=== PATIENT | male | born 1975 | race Asian ===

== ENCOUNTER 2017-01-21 19:11 | Observation (INO) | payer MEDICAID ==
[2017-01-21] MEDS ORDERED: ONDANSETRON HCL INJ/PF 4 MG/2 ML SDV IV ONE (20:07)
[2017-01-21] MEDS ORDERED: NORMAL SALINE 1000 ML 1,000 ML IV ONE (20:07)
[2017-01-21 20:50] LABS: ABSOLUTE LYMPHOCYTES (AUTO) 4.3 10^3/uL (0.5-4.7); ABSOLUTE MONOCYTES (AUTO) 1.2 10^3/uL (0.1-1.4); ABSOLUTE NEUT (AUTO) 14.4 10^3/uL (1.7-8.2); BASOPHILS % (AUTO) 0.2 % (0-2); HEMATOCRIT 43.5 % (37.9-51.0); HEMOGLOBIN 13.6 g/dL (13.5-17.0); HGB HCT DIFFERENCE -2.7; LYMPHOCYTES % (AUTO) 21.8 % (13-45); MEAN CORPUSCULAR HGB CONC 31.3 g/dL (32.0-36.0); MEAN CORPUSCULAR VOLUME 70 fl (80-97); MONOCYTES % (AUTO) 5.9 % (3-13); RED CELL DISTRIBUTION WIDTH 23.4 % (11.5-14.0); SEGMENTED NEUTROPHILS % (AUTO) 72.1 % (42-78); WHITE BLOOD COUNT 19.9 10^3/uL (4.0-10.5)
[2017-01-21 20:57] LABS: ALANINE AMINOTRANSFERASE 139 U/L (21-72); ALBUMIN 4.4 g/dL (3.5-5.0); ALKALINE PHOSPHATASE 120 U/L (38-126); ASPARTATE AMINO TRANSFERASE 134 U/L (17-59); BILIRUBIN,DIRECT 0.7 mg/dL (0.0-0.4); BILIRUBIN,TOTAL 1.1 mg/dL (0.2-1.3); BLOOD UREA NITROGEN 27 mg/dL (7-20); CALCIUM 10.4 mg/dL (8.4-10.2); CREATININE RESULT 0.91 mg/dL (0.52-1.25); LIPASE 55.7 U/L (23-300); TOTAL PROTEIN 8.5 g/dL (6.3-8.2)
--- NOTE | 2017-01-21 21:01 | ER Document Report ---
ED General - General Chief Complaint: Vomiting Stated Complaint: POSSIBLE FOOD POISIONING Time Seen by Provider: 01/21/17 20:27 Notes: Patient is a 41-year-old male with past medical history of hepatitis C and type 1 diabetes induced apparently through attempted treatment to cure his hepatitis C who presents with persistent vomiting and epigastric abdominal pain for the last 24 hours. Describes as a dull, burning, constant pain to the epigastrium which started after he had vomited several times. He believes this is related to drinking "bad" orange juice. No known sick contacts. States his blood sugars typically run in the 400s and "it is not manageable and it just will not get better". Admits to multiple prior hospitalizations for diabetic ketoacidosis. He states he continues to take his insulin despite vomiting. Nothing has improved or worsened his symptoms. He has not seen his primary care doctor regarding today's concerns. TRAVEL OUTSIDE OF THE [place] IN LAST 30 DAYS: No - Related Data Allergies/Adverse Reactions: naproxen [Naproxen] Allergy (Verified 11/04/16 17:30) Past Medical History - General Information source: Patient - Social History Smoking Status: Current Every Day Smoker Frequency of alcohol use: None Drug Abuse: None Lives with: Spouse/Significant other Family History: Reviewed & Not Pertinent Patient has suicidal ideation: No Patient has homicidal ideation: No Endocrine Medical History: Reports: Hx Diabetes Mellitus Type 1 Renal/ Medical History: Denies: Hx Peritoneal Dialysis GI Medical History: Reports: Hx Hepatitis - Hepatitis C Infectious Medical History: Reports: Hx Hepatitis - Hepatitis C Past Surgical History: Reports: Hx Cholecystectomy, Hx Tonsillectomy - Immunizations Immunizations up to date: Yes Hx Diphtheria, Pertussis, Tetanus Vaccination: Yes Review of Systems - Review of Systems Notes: Constitutional: Negative for fever. HENT: Negative for sore throat. Eyes: Negative for visual changes. Cardiovascular: Negative for chest pain. Respiratory: Negative for shortness of breath. Gastrointestinal: Positive for epigastric abdominal pain and vomiting Genitourinary: Negative for dysuria. Musculoskeletal: Negative for back pain. Skin: Negative for rash. Neurological: Negative for headaches, weakness or numbness. 10 point ROS negative except as marked above and in HPI. Physical Exam - Vital signs Vitals: Temp Pulse Resp BP Pulse Ox 98.2 F 131 H 16 115/63 100 01/21/17 19:38 01/21/17 19:38 01/21/17 19:38 01/21/17 19:38 01/21/17 19:38 Interpretation: Tachycardic Notes: PHYSICAL EXAMINATION: GENERAL: Appears mildly ill but in no acute distress HEAD: Atraumatic, normocephalic. EYES: Pupils equal round and reactive to light, extraocular movements intact, sclera anicteric, conjunctiva are normal. ENT: nares patent, oropharynx clear without exudates. Moderately dry mucous membranes. NECK: Normal range of motion, supple without lymphadenopathy LUNGS: Breath sounds clear to auscultation bilaterally and equal. No wheezes rales or rhonchi. HEART: Regular tachycardia without murmurs ABDOMEN: Soft, nontender, normoactive bowel sounds. No guarding, no rebound. No masses appreciated. EXTREMITIES: Normal range of motion, no pitting or edema. No cyanosis. NEUROLOGICAL: No focal neurological deficits. Moves all extremities spontaneously and on command. PSYCH: Normal mood, normal affect. SKIN: Warm, Dry, normal turgor, no rashes or lesions noted. Course - Re-evaluation Re-evalutation: 01/21/17 20:59 Patient presents with persistent vomiting for the past 24 hours. Patient reports he is hyperglycemic at baseline typically in the 400s. Patient is tachycardic at time of arrival. Will proceed with labs, IV fluids, and reassessment. Patient already status post cholecystectomy and has no focal abdominal tenderness to suggest an acute bowel obstruction, mesenteric ischemia , acute pancreatitis, or bowel perforation. EKG without evidence of ischemic changes and I do not suspect an atypical presentation of ACS time 01/21/17 21:38 Patient's laboratories are consistent with acute diabetic ketoacidosis. And gap is 29 and bicarb is decreased at 18. His glucose is 429. He remains tachycardic. An additional 2 L of fluid will be bolused, potassium and IV insulin infusion will be started. Patient is critically ill at this time and will require admission. He will be reassessed frequently. 01/21/17 22:32 Patient is mildly tachycardic but repeat venous gas shows that his acidosis has now likely resolved. Insulin infusion is ongoing. He remains awake and talkative. I have discussed this case with who will admit. - Vital Signs Vital signs: Temp Pulse Resp BP Pulse Ox 99.8 F 98 14 100/53 L 100 01/22/17 01:27 01/22/17 01:27 01/22/17 01:27 01/22/17 01:27 01/22/17 01:27 - Laboratory Result Diagrams: 01/21/17 20:20 01/22/17 00:20 Laboratory results interpreted by me: 01/21/17 01/21/17 01/22/17 20:20 20:20 00:20 WBC 19.9 H RBC 6.20 H MCV 70 L MCH 22.0 L MCHC 31.3 L RDW 23.4 H Absolute Neutrophils 14.4 H Chloride 92 L Carbon Dioxide 18 L Anion Gap 29 H BUN 27 H 24 H Glucose 429 H* 243 H POC Glucose Calcium 10.4 H Direct Bilirubin 0.7 H AST 134 H ALT 139 H Total Protein 8.5 H 01/22/17 01/22/17 00:35 01:40 WBC RBC MCV MCH MCHC RDW Absolute Neutrophils Chloride Carbon Dioxide Anion Gap BUN Glucose POC Glucose 207 H 154 H Calcium Direct Bilirubin AST ALT Total Protein - EKG Interpretation by Me Additional EKG results interpreted by me: 01/21/17 21:41 Sinus tachycardia. Rate 115. No ST elevations or depressions. QTC is 460. Critical Care Note - Critical Care Note Total time excluding time spent on procedures (mins): 45 Comments: Critical care time spent obtaining history from patient or surrogate, discussions with consultants, development of treatment plan with patient or surrogate, evaluation of patient's response to treatment, examination of patient , ordering and performing treatments and interventions, ordering and review of laboratory studies, re-evaluation of patient's condition, ordering and review of radiographic studies and review of old charts Discharge - Discharge Clinical Impression: Hypovolemia Diabetic ketoacidosis Qualifiers: Diabetes mellitus type: type 1 Diabetes mellitus complication detail: without coma Qualified Code(s): E10.10 - Type 1 diabetes mellitus with ketoacidosis without coma Nausea and vomiting Qualifiers: Vomiting type: unspecified Vomiting Intractability: non-intractable Qualified Code(s): R11.2 - Nausea with vomiting, unspecified Condition: Critical Disposition: ADMITTED INPATIENT Admitting Provider: [facility] Unit Admitted: [facility]
[2017-01-21 21:22] LABS: CARBON DIOXIDE 18 mmol/L (22-30); CHLORIDE 92 mmol/L (98-107); POTASSIUM 4.1 mmol/L (3.6-5.0)
[2017-01-21 21:23] LABS: ANION GAP 29 (5-19); GLUCOSE 429 mg/dL (75-110)
[2017-01-21] MEDS ORDERED: INSULIN REG, HUMAN 100 UNIT/ML 3 ML VIAL (PYX) IV ONE (21:36)
[2017-01-21] MEDS ORDERED: RINGERS SOLUTION,LACTATED 2,000 ML IV ONE (21:37)
[2017-01-21] MEDS ORDERED: POTASSI CL 20 MEQ/50 ML RIDER 50 ML IV ONE (21:38)
--- NOTE | 2017-01-21 22:09 | RADIOLOGY REPORT (SQ) ---
EXAM DESCRIPTION: CHEST SINGLE VIEW COMPLETED DATE/TIME: 01/21/2017 9:53 pm REASON FOR STUDY: chest pain COMPARISON: October 2016 EXAM PARAMETERS: NUMBER OF VIEWS: One view. TECHNIQUE: Single frontal radiographic view of the chest acquired. RADIATION DOSE: NA LIMITATIONS: None. FINDINGS: LUNGS AND PLEURA: Ill-defined increased density is identified in the right mid lung field which correlates with an oval nodular density in the inferior right upper lobe identified on the prev ious chest CT scan. No acute consolidations or pleural effusions are identified. No pneumothorax is seen MEDIASTINUM AND HILAR STRUCTURES: No masses. Contour normal. HEART AND VASCULAR STRUCTURES: Heart normal in size. Normal vasculature. BONES: No acute findings. HARDWARE: None in the chest. OTHER: No other significant finding. IMPRESSION: Ill-defined increased density in the right mid lung field as noted above. No acute cons olidations or pleural effusions are identified. Other findings as noted above TECHNICAL DOCUMENTATION: JOB ID: [id number]
[2017-01-21 22:20] LABS: VENOUS BLOOD BASE EXCESS 1.2 mmol/L; VENOUS BLOOD HCO3 26.2 mmol/L (20-32); VENOUS BLOOD PH 7.4 (7.30-7.42)
[2017-01-21] MEDS ORDERED: DEXTROSE 40% GEL 15 GM TUBE PO PRN ×2 (22:43)
[2017-01-21] MEDS ORDERED: DEXTROSE 50%-WATER 25 GM/50 ML DISP.SYRIN IV PRN ×2 (22:43)
[2017-01-21] MEDS ORDERED: NORMAL SALINE 100 ML with INSULIN REGULAR, HUMAN 100 UNIT IV PRN ×2 (22:43)
[2017-01-21] MEDS ORDERED: 1/2 NORMAL SALINE 1,000 ML IV PRN (22:43)
[2017-01-21] MEDS ORDERED: GLUCAGON,HUMAN RECOMB 1 MG INJ IM PRN (22:43)
[2017-01-21] MEDS ORDERED: 1/2 NORMAL SALINE 1,000 ML IV ONE (22:45)
[2017-01-22 00:38] LABS: ANION GAP 14 (5-19); BLOOD UREA NITROGEN 24 mg/dL (7-20); CALCIUM 9.4 mg/dL (8.4-10.2); CARBON DIOXIDE 25 mmol/L (22-30); CHLORIDE 101 mmol/L (98-107); CREATININE RESULT 0.78 mg/dL (0.52-1.25); GLUCOSE 243 mg/dL (75-110); POTASSIUM 4.3 mmol/L (3.6-5.0); SODIUM 140.2 mmol/L (137-145)
[2017-01-22] MEDS: DEXTROSE 5%-NORMAL SALINE 1,000 ML IV PRN ×2 (01:37→05:12)
[2017-01-22] MEDS ORDERED: NICOTINE 21 MG/24 HR PATCH.TD24 TD PRN (02:16)
[2017-01-22] MEDS ORDERED: ACETAMINOPHEN 325 MG TABLET PO PRN (02:16)
[2017-01-22] MEDS ORDERED: OXYCODONE HCL IR 5 MG TABLET PO PRN (02:16)
[2017-01-22] MEDS ORDERED: MAGNESIUM HYDROXIDE SUSP 30 ML UDCUP PO PRN (02:18)
[2017-01-22 02:50] LABS: ADD ON TESTING BLD IN LAB ACKNOWLEDGE
[2017-01-22 02:59] LABS: MAGNESIUM 1.8 mg/dL (1.6-2.3)
--- NOTE | 2017-01-22 03:09 | PDOC H&P ---
History of Present Illness Admission Date/PCP: 01/21/17 23:49 JUDY KANG DO Patient complains of: nausea, vomiting History of Present Illness: JUDY BATRES is a 41 year old male with underlying type 1 diabetes mellitus, and chronic painful diabetic neuropathy involving his hands and feet, mild anxiety and depression, without suicidal or homicidal ideation, and underlying hepatitis C, status post treatment of same who presents to the emergency room for evaluation of above complaint. Patient has been discussed with emergency room physician who evaluated the patient. He describes a 24 hour history or so of multiple episodes of nonbloody non- coffee ground nausea and vomiting, starting after he drank orange juice, which, by his account, did not taste completely normal. No other friends or family drank the same juice. Denies diarrhea, fever or chills. No "sore spots" anywhere on his body. Occasional mild chest discomfort associated with his vomiting. Currently no chest pain. States his blood sugar, which he states she checks 6 times a day, is routinely in the 400 range. Lantus was increased from 25 units nightly to 30 units nightly approximately a week or so ago. Also uses sliding scale NovoLog. His only previous admission for diabetic ketoacidosis was in 2008. Currently resting quietly, hungry. States he feels a bit better. Laboratory results are listed in [facility] and are reviewed. X-ray summary results are listed below, with full report(s) reviewed, including prior CT angiogram of chest in October of this year. Follow-up of these results with his primary care provider discussed at that time with patient by emergency room physician. . EKG reviewed and compared to prior tracing from November 04 of this year. Social history/personal habits: . Has children. 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 One pack of cigarettes per day. No alcohol or illicit drug use. Allergies/adverse reactions are listed in [facility] and are reviewed. Home medications initially autopopulated into [employer] may not accurately reflect patient's true medications, dosages, and/or frequencies. plant maintenance technician to reconcile medications. Unfortunately, patient not certain of all medications/dosages/frequencies. REVIEW OF SYSTEMS: Constitutional: No fever or chills. Eyes: No vision complaints. ENT: No swallowing problems or complaints. Denies hearing loss. Pulmonary: No current complaints. Cardiovascular: See history and present illness. Gastrointestinal: See history and present illness. Skin: No current complaints, including rashes. Hematologic: Denies easy bruising. Neurologic: See history and present illness. Musculoskeletal: No current or chronic joint complaints, such as arthritis. Psychiatric: See history and present illness. Endocrine: Denies specific complaints, including polyuria. Genitourinary: No current complaints, including dysuria. PHYSICAL EXAMINATION: 5 feet 8 inches tall. 74.1 kg. BMI 24.8 kg/m.Pulse 104 and regular. Blood pressure 100/53. Respirations are 14 and unlabored. 100% saturation on room air. Temperature 99.8. Well-nourished well-developed though somewhat chronically ill-appearing male appearing perhaps a bit older than his stated age. Appears to feel a bit under the weather, so to speak. Mildly anxious without agitation. Cooperative. is present at his side; patient approves. Skin is warm and dry. No grossly obvious evidence of rash in areas of skin examined. No subcutaneous nodules palpated. ENT: Hearing grossly normal to normal conversation. Tongue midline on protrusion pink and slightly tacky. Eyes: No scleral icterus. Pupils equal and reactive to light at 4 mm. [place] conjunctivae. Neck is supple and nontender to gentle active range of motion and palpation. Midline trachea. No palpable thyroid nodule mass enlargement or tenderness. Lymphatic: No palpable cervical or clavicular nodes. Neck and lymphatic exams limited by patient body habitus. Psychiatric: Reasonable insight into acute and chronic medical issues. Oriented to time location and why here. Lungs: Auscultation reveals clear and equal breath sounds bilaterally. No use of accessory respiratory muscles. Cardiovascular: Heart regular rate and rhythm, without gallop murmur or rub. No carotid or abdominal aortic bruits. No ankle or pedal edema. Palpable dorsalis pedis pulses. Abdomen:soft slightly distended nontender with positive bowel sounds. Unable to adequately evaluate abdomen for masses or organomegaly due to distention. Extremities: Feet are warm and dry. Very mild bilateral calf tenderness to compression, without palpable venous cords; chronic finding, according to the patient, without recent change. No grossly obvious visual evidence of calf swelling. Gentle manipulation of lower extremities fails to reveal any obvious evidence of injury or instability to knees hips or ankles. Neurologic: Moves upper extremities grossly normally. Patellar reflexes absent. Absent Babinski. Dorsiflexion and plantarflexion of feet 5 / 5 and symmetric. Past Medical History Cardiac Medical History: Denies: Congestive Heart Failure, DVT, Myocardial Infarction, Hyperlipidema, Hypertension, Pulmonary Embolism Pulmonary Medical History: Denies: Asthma, Chronic Obstructive Pulmonary Disease (COPD), Sleep Apnea EENT Medical History: Denies: Eyes, Ears, Throat Neurological Medical History: Reports: Other - Painful diabetic neuropathy involving hands and feet Denies: Hemorrhagic CVA, Ischemic CVA, Seizures Endocrine Medical History: Reports: Diabetes Mellitus Type 1 Denies: Diabetes Mellitus Type 2, Hyperthyroidism, Hypothyroidism Renal/ Medical History: Reports: None GI Medical History: Reports: Hepatitis - Hepatitis C, status post treatment of same Denies: Cirrhosis, Gastroesophageal Reflux Disease, Peptic Ulcer Disease Musculoskeltal Medical History: Denies: Arthritis Skin Medical History: Reports: None Psychiatric Medical History: Reports: Depression, General Anxiety Disorder, Tobacco Dependency Denies: Alcohol Dependency, Substance Abuse Hematology: Reports: None Infectious Medical History: Reports: Hepatitis C - Status post treatment of same Denies: Clostridium Difficile, Hepatitis B, Methicillin-Resistant Staph Aureus Past Surgical History Past Surgical History: Reports: Cholecystectomy, Tonsillectomy Social History Information Source: Patient, Emergency Med Personnel, [facility] Records Lives with: Family Smoking Status: Current Every Day Smoker Cigarettes Packs Per Day: 1 Number of Years Smokin Last Time Smoked: 01-21-17 Frequency of Alcohol Use: None Hx Recreational Drug Use: No Drugs: None Hx Prescription Drug Abuse: No - Advance Directive Resuscitation Status: Full Code Surrogate healthcare decision maker:: Family History Family History: Reviewed & Not Pertinent Parental Family History Reviewed: Yes - Uncertain cause of father's . Mother is alive and healthy. Children Family History Reviewed: Yes - Healthy Sibling(s) Family History Reviewed.: NA Medication/Allergy Home Medications: Gabapentin [Neurontin] 600 mg PO Q8 01/22/17 Insulin Aspart [Novolog Flexpen] 0 unit SUBCUT .SLD SCALE 01/22/17 Insulin Aspart [Novolog Flexpen] 40 unit SUBCUT AC 01/22/17 Insulin Glargine,Hum.rec.anlog [Lantus Solostar] 30 unit SQ QHS 01/22/17 Lurasidone HCl [Latuda] 40 mg PO BID 01/22/17 Mupirocin [Bactroban 2% Ointment 22 gm] 1 applic TP BID 01/22/17 Ondansetron [Zofran Odt 4 mg Tablet] 1 - 2 tab PO Q4HP PRN #10 tab.rapdis Oxycodone HCl [Oxycodone HCl 10 MG Tablet] 10 mg PO Q6HP PRN 01/22/17 Allergies/Adverse Reactions: naproxen [Naproxen] Allergy (Verified 11/04/16 17:30) Physical Exam Vital Signs: Temp Pulse Resp BP Pulse Ox 99.8 F 98 14 100/53 L 100 01/22/17 01:27 01/22/17 01:27 01/22/17 01:27 01/22/17 01:27 01/22/17 01:27 Results Laboratory Results: 01/22/17 00:20 01/22/17 00:20 Sodium 140.2 Potassium 4.3 Chloride 101 Carbon Dioxide 25 Anion Gap 14 BUN 24 H Creatinine 0.78 Est GFR ( Amer) > 60 Est GFR (Non-Af Amer) > 60 Glucose 243 H Calcium 9.4 Impressions: Chest X-Ray 01/21/17 21:39 IMPRESSION: Ill-defined increased density in the right mid lung field as noted above. No acute consolidations or pleural effusions are identified. Other findings as noted above Assessment & Plan - Diagnosis (1) Chest pain Qualifiers: Chest pain type: unspecified Qualified Code(s): R07.9 - Chest pain, unspecified Is this a current diagnosis for this admission?: YesPlan: Likely secondary to esophageal spasm from his nausea and vomiting, but will repeat troponin. (2) Nodule of right lung Is this a current diagnosis for this admission?: YesPlan: At 3:35 AM, 01/22/2017, with present, along with patient's floor nurse Radha, patient and confirmed that Dr. Kang is aware of his previous abnormal CT scan of the chest, revealing a nodule in his right lung, and is continuing to follow this area of interest for the patient. (3) Tobacco dependency Is this a current diagnosis for this admission?: YesPlan: As needed nicotine patch. (4) Leukocytosis Qualifiers: Leukocytosis type: unspecified Qualified Code(s): D72.829 - Elevated white blood cell count, unspecified Is this a current diagnosis for this admission?: YesPlan: Likely secondary to stress of the DKA, but will repeat CBC with differential. (5) Hep C w/o coma, chronic Is this a current diagnosis for this admission?: Yes (6) Diabetic neuropathy, painful Is this a current diagnosis for this admission?: YesPlan: As needed pain medication. (7) DKA, type 1 Qualifiers: Diabetes mellitus complication detail: without coma Qualified Code(s ): E10.10 - Type 1 diabetes mellitus with ketoacidosis without coma Is this a current diagnosis for this admission?: YesPlan: Patient will be admitted under DKA protocol. Insulin drip. Vigorous fluid hydration. Q 4 hours chemistry 7. Hourly Accu-Cheks. Addition of dextrose to intravenous fluid once serum glucose and/or Accu-Cheks 275 or less. Patient is full code. I have strongly encouraged patient not to get out of bed without notifying staff , to avoid a fall with injury. Knee high SCDs for DVT prophylaxis, along with subcutaneous heparin. Impression and plans were discussed with patient and , both of whom concur Time spent in evaluation and management of patient: 72 critical care minutes
[2017-01-22 05:07] LABS: PROTHROMBIN TIME 14.5 SEC (11.4-15.4)
[2017-01-22 05:08] LABS: PARTIAL THROMBOPLASTIN TIME 29.4 SEC (23.5-35.8)
[2017-01-22 05:24] LABS: ANION GAP 9 (5-19); BLOOD UREA NITROGEN 21 mg/dL (7-20); CALCIUM 8.7 mg/dL (8.4-10.2); CARBON DIOXIDE 29 mmol/L (22-30); CHLORIDE 105 mmol/L (98-107); CREATININE RESULT 0.68 mg/dL (0.52-1.25); GLUCOSE 113 mg/dL (75-110)
[2017-01-22 06:23] LABS: POTASSIUM 3.3 mmol/L (3.6-5.0)
[2017-01-22] MEDS ORDERED: INSULIN REG, HUMAN 100 UNIT/ML 3 ML VIAL (PYX) SUBCUT PRN (06:55)
[2017-01-22] MEDS ORDERED: POTASSIUM CHLORIDE 20 MEQ/15 ML UDCUP PO ONE ×2 (08:00→10:00)
[2017-01-22 08:10] LABS: ABSOLUTE BASOPHILS # (AUTO) 0.2 10^3/uL (0.0-0.2); ABSOLUTE LYMPHOCYTES (AUTO) 5.2 10^3/uL (0.5-4.7); ABSOLUTE MONOCYTES (AUTO) 1.4 10^3/uL (0.1-1.4); ABSOLUTE NEUT (AUTO) 9.1 10^3/uL (1.7-8.2); BASOPHILS % (AUTO) 1.1 % (0-2); EOSINOPHILS % (AUTO) 0.2 % (0-6); HEMATOCRIT 37.8 % (37.9-51.0); HEMOGLOBIN 11.8 g/dL (13.5-17.0); HGB HCT DIFFERENCE -2.4; LYMPHOCYTES % (AUTO) 32.8 % (13-45); MEAN CORPUSCULAR HEMOGLOBIN 22.3 pg (27.0-33.4); MEAN CORPUSCULAR HGB CONC 31.4 g/dL (32.0-36.0); MEAN CORPUSCULAR VOLUME 71 fl (80-97); MONOCYTES % (AUTO) 8.8 % (3-13); RED BLOOD COUNT 5.31 10^6/uL (4.35-5.55); RED CELL DISTRIBUTION WIDTH 23.2 % (11.5-14.0); SEGMENTED NEUTROPHILS % (AUTO) 57.1 % (42-78); WHITE BLOOD COUNT 15.9 10^3/uL (4.0-10.5)
[2017-01-22 08:26] LABS: ALANINE AMINOTRANSFERASE 119 U/L (21-72); ALBUMIN 3.3 g/dL (3.5-5.0); ALKALINE PHOSPHATASE 97 U/L (38-126); ANION GAP 17 (5-19); ASPARTATE AMINO TRANSFERASE 129 U/L (17-59); BILIRUBIN,DIRECT 0.6 mg/dL (0.0-0.4); BILIRUBIN,TOTAL 1.1 mg/dL (0.2-1.3); BLOOD UREA NITROGEN 19 mg/dL (7-20); CARBON DIOXIDE 21 mmol/L (22-30); CHLORIDE 104 mmol/L (98-107); CREATININE RESULT 0.65 mg/dL (0.52-1.25); GLUCOSE 229 mg/dL (75-110); SODIUM 142.3 mmol/L (137-145); TOTAL PROTEIN 6.9 g/dL (6.3-8.2)
[2017-01-22 08:27] LABS: POTASSIUM 4.4 mmol/L (3.6-5.0)
[2017-01-22] MEDS ORDERED: ONDANSETRON HCL INJ/PF 4 MG/2 ML SDV ONE ×2 (09:34→09:37)
--- NOTE | 2017-01-22 09:50 | EKG REPORT ---
SEVERITY:- ABNORMAL ECG - SINUS TACHYCARDIA PROBABLE LEFT ATRIAL ABNORMALITY PROBABLE LEFT VENTRICULAR HYPERTROPHY : Confirmed by: Jaya Valdivia 22-Jan-2017 09:49:33
[2017-01-22] MEDS ORDERED: DOCUSATE SODIUM 100 MG CAPSULE PO SCH (10:00)
[2017-01-22] MEDS ORDERED: HEPARIN SOD (PORCINE) 5,000 UNIT/ML 1 ML SYRINGE SUBCUT SCH (10:00)
[2017-01-22] MEDS ORDERED: NORMAL SALINE 1000 ML 1,000 ML IV PRN (10:04)
[2017-01-22 12:18] VITALS: BP 100/53
[2017-01-22 12:19] LABS: APPEARANCE,URINE TURBID; BILIRUBIN,URINE NEGATIVE (NEGATIVE); GLUCOSE, URINE 50 mg/dL (NEGATIVE); KETONES,URINE 20 mg/dL (NEGATIVE); LEUKOCYTE ESTERASE,URINE NEGATIVE (NEGATIVE); NITRITE,URINE NEGATIVE (NEGATIVE); PROTEIN,URINE NEGATIVE (NEGATIVE); URINE SPECIFIC GRAVITY 1.013; UROBILINOGEN,URINE NEGATIVE mg/dL (<2.0)
[2017-01-22] MEDS ORDERED: INSULIN GLARGINE,HUM.REC.ANLOG 1,000 UNIT/10 ML UNIT SUBCUT ONE (12:30)
[2017-01-22 12:34] LABS: URINE BARBITURATES SCREEN NEGATIVE; URINE METHADONE SCREEN NEGATIVE; URINE OPIATES LOW NEGATIVE; URINE PHENCYCLIDINE SCREEN NEGATIVE
[2017-01-22 13:23] LABS: ANION GAP 19 (5-19); BLOOD UREA NITROGEN 19 mg/dL (7-20); CALCIUM 8.9 mg/dL (8.4-10.2); CARBON DIOXIDE 19 mmol/L (22-30); CHLORIDE 102 mmol/L (98-107); CREATININE RESULT 0.68 mg/dL (0.52-1.25); SODIUM 139.7 mmol/L (137-145)
[2017-01-22 13:34] LABS: GLUCOSE 438 mg/dL (75-110)
[2017-01-22 13:35] LABS: POTASSIUM 5.4 mmol/L (3.6-5.0)
--- NOTE | 2017-01-22 18:04 | DISCHARGE SUMMARY E ---
Discharge Summary NAME: JUDY BATRES : 1975 AGE: 41Y ADMITTED: 01/22/2017 DISCHARGED: 01/22/2017 CODE STATUS: FULL CODE. PRIMARY CARE PROVIDER: Dr. Kang. DISCHARGE DIAGNOSES: 1. Diabetic ketoacidosis. 2. Diabetes mellitus type 1. 3. Chronic hyperglycemia secondary to noncompliance. 4. Anxiety and depression. 5. Peripheral neuropathy. 6. Hepatitis C. DISCHARGE MEDICATIONS: 1. Neurontin 600 mg p.o. q.8 hours. 2. Lantus 30 units subcutaneous hour of sleep. 3. Novolog 40 units prior to each meal. 4. Latuda 40 mg p.o. b.i.d. 5. Zofran ODT 4 mg 1-2 tablets p.o. q.4 hours p.r.n., #10 tablets 0 refills. 6. Oxycodone 10 mg p.o. q.6 hours p.r.n. DIET: Diabetic. ACTIVITY: As tolerated. HISTORY OF PRESENT ILLNESS: The patient is a 41-year-old male with a past medical history of diabetes mellitus type 1 as well as peripheral neuropathy. The patient presented to the Emergency Department with a chief complaint of nausea and vomiting. The patient describes a 24-hour history of multiple episodes of nonbloody, coffee-ground emesis and an associated nausea. The patient stated that the symptoms occurred after he drank dark-colored orange juice which he stated did not taste completely normal. Nonetheless, the patient continued to drink it. No one else in his family did. The patient denied any diarrhea, no fevers, chills, no sore spots anywhere on his body. The patient states that his blood sugar which he takes about 6 times a day routinely runs in the 400 range. His Lantus had been increased from 25 to 30 units nightly about a month ago. He also takes Novolog sliding scale coverage. The patient was extremely reluctant for admission but was agreeable and was referred to the hospital for admission and management. HOSPITAL COURSE: The patient was admitted to [facility]. The patient was started on insulin drip, and his blood sugar very quickly corrected. Subsequently diet was advanced, and potassium had remained stable. The patient tolerated the meal without issue. Earlier, he did require nausea medications. Upon my examination, the patient, in the presence of his , was absolutely adamant for discharge, stating that his blood sugar routinely runs above 400 and that this is nothing new for him. The patient states that he is at his baseline but would like something for nausea. The patient does not want to remain in the hospital. He has been afebrile. His blood pressures are in a good range. The patient is not tachycardic and is oxygenating well on room air. I have made the patient aware that with hyperglycemia can come hyperkalemia; however, the patient states that this is his normal state and would like discharge. The patient was made aware of the risk and was offered to continue to stay; however, the patient is adamant for discharge. DIAGNOSTICS: Lab values are as follows: Hematology obtained on 01/22/2017: WBC of 15.9; hemoglobin ; hematocrit 37.8; platelet count is 203,000. Coagulation obtained on 01/22/2017: PT is.5. INR is 1.06. VGB obtained on 01/21/2017: pH is 7.4; pCO2 is 43; bicarbonate is 26.2. Chemistry obtained on 01/22/2017: Sodium is 139; potassium is 5.4; chloride is 102; carbon dioxide 19; BUN 19; creatinine 0.68; glucose 432; calcium is 8.9. Magnesium is 1.8. Bilirubin is 1.1; AST 129; ALT is 119; alkaline phosphatase 97. Troponin is 0.012. Total protein 6.9, albumin 3.3. Lipase is 55. Urine obtained on 01/22/2017: pH of 6.0, specific gravity is 1.013, protein negative, glucose 50, ketones 20, occult blood negative, nitrite negative, bilirubin negative, urobilinogen negative, leukocyte esterase negative, WBC 2, RBC 0, bacteria trace, mucus rare; ascorbic acid is negative. Toxicology obtained on 01/22/2017 is kenny negative. Chest x-ray obtained on 01/21/2017 reveals no acute consolidations or pleural effusions. PHYSICAL EXAMINATION: GENERAL: On examination, the patient is a well-developed, reasonably nourished 41-year-old male who is awake, alert, and oriented to person, place, time, and situation. He is verbal conversationally, ambulatory and does not appear to be in acute distress. VITAL SIGNS: As follows, temperature is 98.2. Pulse is 96. Respirations 19. Blood pressure is 105/53. Oxygen saturation 100% on room air. SKIN: Warm and dry. No rash. Not diaphoretic. HEENT: Pupils are equal, round, and reactive to light and accommodation. Conjunctivae pink. No JVD. CARDIOVASCULAR: Heart is regular. There is no murmur or rub. CHEST: Clear, symmetrical, unlabored. ABDOMEN: Soft, nontender, nondistended. BACK: No CVA tenderness or sacral edema. EXTREMITIES: No clubbing, cyanosis, or edema. PSYCHIATRIC: The patient is easily agitated, easily hostile. DISCHARGE PLANNIN. The patient is advised to follow up with primary care provider within 1 week for hospital followup. 2. The patient was strongly encouraged to return to the emergency department if his symptoms persist. Time spent on this discharge including assessment, plan, physical examination, patient education, and family meeting is 35 minutes. DICTATING PHYSICIAN: ELLIS FALCON NP [id number] PHY#: [id number] ID: [id number] JOB#: [id number] ACCT: [id number] cc:Lopez MCCONNELL NP > MTDD
[2017-01-22] MEDS ORDERED: INSULIN GLARGINE,HUM.REC.ANLOG 300 UNIT/3 ML INSULN.PEN SUBCUT SCH (22:00)
== END 2017-01-22 13:35 | disposition home or self-care (01) ==
LOC: ER 19:11 → INTOOBSV 23:49 → EH 23:49 → UNDOADMOB 23:49 → EH 01-22 01:20 → 3N 01-22 01:20 → EH 01-22 02:18 → 3N 01-22 02:18
PROVIDERS: ADMIT Family Medicine; ATTEND Family Medicine
DX: E10.10 Type 1 diabetes mellitus with ketoacidosis without coma (principal); E10.42 Type 1 diabetes mellitus with diabetic polyneuropathy; Z91.14 Patient's other noncompliance with medication regimen; F41.9 Anxiety disorder, unspecified; F32.9 Major depressive disorder, single episode, unspecified; B18.2 Chronic viral hepatitis C; F17.210 Nicotine dependence, cigarettes, uncomplicated; R07.9 Chest pain, unspecified; R91.1 Solitary pulmonary nodule; D72.829 Elevated white blood cell count, unspecified; Z90.49 Acquired absence of other specified parts of digestive tract
CPT/HCPCS: 93005; 99291; 96361; 96375; 96365; 36415 ×2; 82962; 83690; 83735; 85025 ×2; 85610; 85730; 80076; 80048; 80053; 81001; 84484 ×2; 80307; 82803; 71010; 93010; G0378; J1815 ×3; J1644; J3490 ×3; J2405 ×2; J3480; J7030 ×2; J7120

== ENCOUNTER 2018-04-14 16:26 | Emergency (ER) | payer MEDICAID ==
[2018-04-14 16:36] VITALS: BP 104/65
[2018-04-14] MEDS ORDERED: NORMAL SALINE 500 ML IV ONE (17:54)
[2018-04-14] MEDS ORDERED: PROCHLORPERAZINE EDISYLATE INJ 10 MG/2 ML VIAL IV ONE (17:54)
[2018-04-14] MEDS ORDERED: DIPHENHYDRAMINE HCL 50 MG/ML VIAL IV ONE (17:54)
--- NOTE | 2018-04-14 18:01 | ER Document Report ---
HPI - HPI Pain Level: 4 Notes: Patient is a 42-year-old male with past medical history significant for insulin- dependent diabetes who presents to the ED complaining of a sudden onset of a headache that started 3 days ago and has been constant since then. Patient states that his headache starts at his posterior occiput radiates up around to his eyes. Patient states that he has had headaches in the past, but this 1 is different although the severity has not varied from previous. Patient states that he does have nausea associated with a headache without any vomiting. He is still eating and drinking without difficulties, but does have a decreased p.o. intake. He is urinating normally and having normal bowel movements. He has not had any other recent illness. Patient states that he has been resting more so over the last couple days. Denies any injury. Denies any fever, head injury, neck pain, changes in vision/speech/mentation/hearing, URI, sore throat , chest pain, palpitations, syncope, cough, shortness of breath, wheeze, dyspnea , abdominal pain, nausea/vomiting/diarrhea, urinary retention, dysuria, hematuria, loss of control of bowel or bladder, numbness/tingling, saddle anesthesia, muscle paralysis/weakness, or rash. - ROS Systems Reviewed and Negative: Yes All other systems reviewed and negative Past Medical History - Social History Smoking Status: Current Every Day Smoker Family History: Reviewed & Not Pertinent - Past Medical History Cardiac Medical History: Denies: Hx Congestive Heart Failure, Hx DVT, Hx Heart Attack, Hx Hypercholesterolemia, Hx Hypertension, Hx Pulmonary Embolism Pulmonary Medical History: Denies: Hx Asthma, Hx COPD, Hx Sleep Apnea Neurological Medical History: Denies: Hx Seizures Endocrine Medical History: Reports: Hx Diabetes Mellitus Type 1. Denies: Hx Diabetes Mellitus Type 2, Hx Hyperthyroidism, Hx Hypothyroidism Renal/ Medical History: Denies: Hx Peritoneal Dialysis GI Medical History: Reports: Hx Hepatitis - Hepatitis C, status post treatment of same. Denies: Hx Cirrhosis, Hx Gastroesophageal Reflux Disease Musculoskeletal Medical History: Denies Hx Arthritis Psychiatric Medical History: Reports: Hx Bipolar Disorder, Hx Depression Infectious Medical History: Reports: Hx Hepatitis - Hepatitis C, status post treatment of same. Denies: Hx C-Diff, Hx MRSA Past Surgical History: Reports: Hx Cholecystectomy, Hx Tonsillectomy - Immunizations Immunizations up to date: Yes Hx Diphtheria, Pertussis, Tetanus Vaccination: Yes Vertical Provider Document - CONSTITUTIONAL Agree With Documented VS: No - HR 90 during exam. Notes: PHYSICAL EXAMINATION: GENERAL: Well-appearing, well-nourished and in no acute distress. A&Ox4. Answers questions appropriately. HEAD: Atraumatic, normocephalic. + mild tenderness to the occipital nerve bundle b/l, correlates with pain origin described. EYES: Pupils equal round and reactive to light, extraocular movements intact, sclera anicteric, conjunctiva are normal. No nystagmus. vis alvarado intact. ENT: EAC clear b/l. TM's intact b/l without erythema, fluid, or perforation. Nares patent and without discharge. oropharynx clear without exudates. No tonsilar hypertrophy or erythema. Moist mucous membranes. No sinus tenderness. NECK: Normal range of motion, supple without lymphadenopathy. No rigidity/ meningismus. No midline tenderness. LUNGS: Breath sounds clear to auscultation bilaterally and equal. No wheezes rales or rhonchi. HEART: Regular rate and rhythm without murmurs, rubs, gallops. ABDOMEN: Soft, nontender, nondistended abdomen. No guarding, no rebound. Normal bowel sounds present. No CVA tenderness bilaterally. Musculoskeletal: Ext b/l: FROM to passive/active. Strength 5+/5. No deficits noted. No bony tenderness of extremities. Extremities: No cyanosis, clubbing, or edema b/l. Peripheral pulses 2+. Capillary refill less than 2 seconds. NEUROLOGICAL: NIH 0. GCS 15. Cranial nerves grossly intact. Normal speech, normal gait. Normal sensory, motor exams. Reflexes 2+ b/l. VALENTÍN's negative. Pronator drift negative. Heel/zhao, finger/nose wnl. Rhomberg neg. PSYCH: Normal mood, normal affect. SKIN: Warm, Dry, normal turgor, no rashes or lesions noted. - INFECTION CONTROL TRAVEL OUTSIDE OF THE [place] IN LAST 30 DAYS: No Course - Re-evaluation Re-evalutation: 04/14/18 18:02 Accucheck 124 taken at bedside. 04/14/18 19:01 Patient is an afebrile, well-hydrated, 42-year-old male who presents to the ED with a headache, suspect benign/tension headache. Vitals are acceptable without any significant tachycardia, tachypnea, or hypoxia. PE is otherwise unremarkable for any focal neurological deficits. NIH 0, GCS 15, cranial nerves grossly intact. CT scan of the head was unremarkable for any acute pathology. Patient was given Compazine and Benadryl IV which resolved his headache. Aside from drowsiness, patient states that he is feeling much better and would like to go home. Patient's abdomen is soft and nontender. No other labs or imaging warranted at this time based on H&P. Low suspicion for any DKA , acute glaucoma, temporal arteritis, meningitis, intracranial hemorrhage, ischemic stroke, or fracture at this time. Patient is aware that his condition can change from initial presentation and that he needs to monitor symptoms closely for any acute changes. Conservative measures for symptoms. Recheck with your PCM in 2-3 days. Return to the ED with any worsening/concerning symptoms otherwise as reviewed in discharge. Patient is in agreement. - Vital Signs Vital signs: Temp Pulse Resp BP Pulse Ox 98.5 F 117 H 16 104/65 98 04/14/18 16:29 04/14/18 16:29 04/14/18 16:29 04/14/18 16:29 04/14/18 16:29 Discharge - Discharge Clinical Impression: Occipital neuritis Headache Qualifiers: Headache type: tension-type Headache chronicity pattern: acute headache Intractability: not intractable Qualified Code(s): G44.209 - Tension-type headache, unspecified, not intractable Condition: Stable Disposition: HOME, SELF-CARE Instructions: Antinausea Medication ([facility]), Headache ([facility]) Additional Instructions: Rest, Ice Tylenol/ibuprofen as needed Light stretches daily Strength exercises as able Moist heat and massage may help F/u with your PCP in 2-3 days for a recheck Return to the ED with any worsening symptoms and/or development of fever, headache, changes in behavior/mentation/vision/speech, chest pain, palpitations , syncope, shortness of breath, trouble breathing, abdominal pain, n/v/d, blood in stool/urine, loss of control of bowel/bladder, urinary retention, muscle weakness/paralysis, saddle anesthesia, numbness/tingling, or other worsening symptoms that are concerning to you. Prescriptions: Ondansetron [Zofran Odt 4 mg Tablet] 1 - 2 tab PO Q4H PRN #15 tab.rapdis PRN Reason: For Nausea/Vomiting Referrals: JUDY RAJPUT DO [Primary Care Provider] - 04/16/18
--- NOTE | 2018-04-14 18:27 | RADIOLOGY REPORT (SQ) ---
EXAM DESCRIPTION: CT HEAD WITHOUT COMPLETED DATE/TIME: 04/14/2018 6:15 pm REASON FOR STUDY: headache COMPARISON: 04/22/2015 TECHNIQUE: Axial images acquired through the brain without intravenous contrast. Images reviewed wi th bone, brain and subdural windows. Additional sagittal and coronal reconstructions were generated. Images stored on PACS. All CT scanners at this facility use dose modulation, iterative reconstruction, and/or weight based d osing when appropriate to reduce radiation dose to as low as reasonably achievable (ALARA). [facility]: Dose Right [facility]: CareDose [facility]: Dose Right [facility]: Teradose 4D [facility]: Smart Pencil You In RADIATION DOSE: CT Rad equipment meets quality standard of care and radiation dose reduction techniq ues were employed. CTDIvol: 55.2 mGy. DLP: 1084 mGy-cm. mGy. LIMITATIONS: None. FINDINGS: VENTRICLES: Normal size and contour. CEREBRUM: No masses. No hemorrhage. No midline shift. No evidence for acute infarction. Normal gra y/white matter differentiation. No areas of low density in the white matter. CEREBELLUM: No masses. No hemorrhage. No alteration of density. No evidence for acute infarction. EXTRAAXIAL SPACES: No fluid collections. No masses. ORBITS AND GLOBE: No intra- or extraconal masses. Normal contour of globe without masses. CALVARIUM: No fracture. PARANASAL SINUSES: No fluid or mucosal thickening. SOFT TISSUES: No mass or hematoma. OTHER: No other significant finding. IMPRESSION: NORMAL BRAIN CT WITHOUT CONTRAST. EVIDENCE OF ACUTE STROKE: NO. COMMENT: Quality ID # [id number]: Final reports with documentation of one or more dose reduction techniques (e.g., Automated exposure control, adjustment of the mA and/or kV according to patient size, use of iterative reconstruction technique) TECHNICAL DOCUMENTATION: JOB ID: [id number] [id number]- All Rights Reserved Reading location - IP/workstation name: [email or web address]
== END 2018-04-14 19:15 | disposition home or self-care (01) ==
LOC: ER 16:26
DX: G44.209 Tension-type headache, unspecified, not intractable (principal); G58.8 Other specified mononeuropathies; F17.200 Nicotine dependence, unspecified, uncomplicated; E10.9 Type 1 diabetes mellitus without complications; Z86.19 Personal history of other infectious and parasitic diseases
CPT/HCPCS: 99284; 96361; 96374; 96375; 82962; 70450; J1200; J0780; J7040

== ENCOUNTER → 2018-06-11 | Outpatient (CLI) | payer MEDICAID ==
--- NOTE | 2018-06-11 09:46 | RADIOLOGY REPORT (SQ) ---
EXAM DESCRIPTION: FOOT LEFT COMPLETE COMPLETED DATE/TIME: 06/11/2018 9:37 am REASON FOR STUDY: ACUTE PAIN OF LEFT FOOT M79.672 PAIN IN LEFT FOOT COMPARISON: None. NUMBER OF VIEWS: Three views. TECHNIQUE: AP, lateral and oblique without weight bearing radiographic images acquired of the left f oot. LIMITATIONS: None. FINDINGS: MINERALIZATION: Normal. BONES: No acute fracture or dislocation. No worrisome bone lesions. Small plantar calcaneal spur. JOINTS: No erosions. No shiraz-articular osteopenia. No chondrocalcinosis. SOFT TISSUES: Lateral soft tissue swelling. No calcifications. OTHER: No other significant finding. IMPRESSION: SMALL HEEL SPUR. LATERAL SOFT TISSUE SWELLING. TECHNICAL DOCUMENTATION: JOB ID: [id number] [employer]- All Rights Reserved Reading location - IP/workstation name: [email or web address]
== END ==
LOC: OD 09:20
PROVIDERS: ATTEND Family Medicine
DX: M79.672 Pain in left foot (principal)

== ENCOUNTER 2019-04-24 14:43 | Emergency (ER) | payer SELFPAY ==
--- NOTE | 2019-04-24 15:01 | EKG REPORT ---
SEVERITY:- NORMAL ECG - SINUS RHYTHM : Confirmed by: Faheem Ortega MD 24-Apr-2019 15:00:38
--- NOTE | 2019-04-24 16:09 | ER Document Report ---
ED Medical Screen (RME) - General Chief Complaint: Chest Pain Stated Complaint: CHEST PAIN Time Seen by Provider: 04/24/19 16:03 Primary Care Provider: JUDY RAJPUT DO [Primary Care Provider] - Follow up as needed TRAVEL OUTSIDE OF THE [place] IN LAST 30 DAYS: No - HPI Notes: 04/24/19 16:08 Patient is a 43-year-old male who presents complaining of a sharp stabbing type pain to the left sternal area that began this morning around 6 AM. Patient states that the pain does not radiate. Patient states that on occasion he will have a little bit of shortness of breath. He does admit to smoking. He has medical history of insulin-dependent diabetes and hepatitis C. Denies any prolonged immobilization, distance travel, recent surgery/trauma, personal cancer history, hormone use, or previous DVT/PE. Denies VILLALOBOS, fever, neck pain, URI, n/v/d, Abd pain, dysuria, back pain, or rash. I have treated and performed a rapid initial assessment of this patient. A comprehensive ED assessment and evaluation of the patient, analysis of test results and completion of medical decision making process will be conducted by additional ED providers. PHYSICAL EXAMINATION: GENERAL: Well-appearing, well-nourished and in no acute distress. A&Ox4. Answers questions appropriately. LUNGS: Breath sounds clear to auscultation bilaterally and equal. No wheezes rales or rhonchi. HEART: Regular rate and rhythm without murmurs, rubs, gallops. Extremities: No cyanosis, clubbing, or edema b/l. Payam negative bilaterally. No lower extremity asymmetry. NEUROLOGICAL: Normal speech, normal gait. PSYCH: Normal mood, normal affect. - Related Data Allergies/Adverse Reactions: naproxen [Naproxen] Allergy (Verified 04/24/19 14:44) Past Medical History - Past Medical History Cardiac Medical History: Denies: Hx Congestive Heart Failure, Hx DVT, Hx Heart Attack, Hx Hyper cholesterolemia, Hx Hypertension, Hx Pulmonary Embolism Pulmonary Medical History: Denies: Hx Asthma, Hx COPD, Hx Sleep Apnea Neurological Medical History: Denies: Hx Seizures Endocrine Medical History: Reports: Hx Diabetes Mellitus Type 1. Denies: Hx Diabetes Mellitus Type 2, Hx Hyperthyroidism, Hx Hypothyroidism Renal/ Medical History: Denies: Hx Peritoneal Dialysis GI Medical History: Reports: Hx Hepatitis - Hepatitis C, status post treatment of same. Denies: Hx Cirrhosis, Hx Gastroesophageal Reflux Disease Musculoskeltal Medical History: Denies Hx Arthritis Psychiatric Medical History: Reports: Hx Bipolar Disorder, Hx Depression Infectious Medical History: Reports: Hx Hepatitis - Hepatitis C, status post treatment of same. Denies: Hx C-Diff, Hx MRSA Past Surgical History: Reports: Hx Cholecystectomy, Hx Tonsillectomy - Immunizations Immunizations up to date: Yes Hx Diphtheria, Pertussis, Tetanus Vaccination: Yes Physical Exam - Vital signs Vitals: Temp Pulse Resp BP Pulse Ox 98.2 F 98 17 111/74 98 04/24/19 14:56 04/24/19 14:56 04/24/19 14:56 04/24/19 14:56 04/24/19 14:56 Course - Vital Signs Vital signs: Temp Pulse Resp BP Pulse Ox 98.2 F 98 17 111/74 98 04/24/19 14:56 04/24/19 14:56 04/24/19 14:56 04/24/19 14:56 04/24/19 14:56 Doctor's Discharge - Discharge Referrals: JUDY RAJPUT DO [Primary Care Provider] - Follow up as needed
--- NOTE | 2019-04-24 17:06 | RADIOLOGY REPORT (SQ) ---
EXAM DESCRIPTION: CHEST 2 VIEWS COMPLETED DATE/TIME: 04/24/2019 4:52 pm REASON FOR STUDY: CP COMPARISON: None. TECHNIQUE: Frontal and lateral radiographic views of the chest acquired. NUMBER OF VIEWS: Two view. LIMITATIONS: None. FINDINGS: LUNGS AND PLEURA: No pneumothorax. No consolidation or pleural effusion. MEDIASTINUM AND HILAR STRUCTURES: Stable. HEART AND VASCULAR STRUCTURES: Stable. BONES: No acute findings. HARDWARE: None in the chest. OTHER: No other significant finding. IMPRESSION: NO ACUTE FINDINGS. TECHNICAL DOCUMENTATION: JOB ID: [id number] [place]-72 2010 [employer]- All Rights Reserved Reading location - IP/workstation name: [email or web address]
[2019-04-24 17:18] LABS: HEMATOCRIT 39.6 % (37.9-51.0); HEMOGLOBIN 12.8 g/dL (13.5-17.0); MEAN CORPUSCULAR HEMOGLOBIN 21.7 pg (27.0-33.4); MEAN CORPUSCULAR HGB CONC 32.2 g/dL (32.0-36.0); MEAN CORPUSCULAR VOLUME 67 fl (80-97); PLATELET COUNT 257 10^3/uL (150-450); RED BLOOD COUNT 5.87 10^6/uL (4.35-5.55); RED CELL DISTRIBUTION WIDTH 22.5 % (11.5-14.0); WHITE BLOOD COUNT 10.2 10^3/uL (4.0-10.5)
[2019-04-24 17:28] LABS: ALBUMIN 4.4 g/dL (3.5-5.0); ALKALINE PHOSPHATASE 126 U/L (38-126); ANION GAP 10 (5-19); ASPARTATE AMINO TRANSFERASE 207 U/L (17-59); BILIRUBIN,DIRECT 0.5 mg/dL (0.0-0.4); BILIRUBIN,TOTAL 0.7 mg/dL (0.2-1.3); BLOOD UREA NITROGEN 30 mg/dL (7-20); CALCIUM 10.3 mg/dL (8.4-10.2); CARBON DIOXIDE 30 mmol/L (22-30); CHLORIDE 99 mmol/L (98-107); GLUCOSE 140 mg/dL (75-110); POTASSIUM 4.5 mmol/L (3.6-5.0); TOTAL PROTEIN 8.4 g/dL (6.3-8.2)
[2019-04-24 17:39] LABS: NT PRO BNP 85 pg/mL (<125); TROPONIN I < 0.012 ng/mL
[2019-04-24 17:41] LABS: ABSOLUTE LYMPHOCYTES# (MANUAL) 6.3 10^3/uL (0.5-4.7); ABSOLUTE MONOCYTES # (MANUAL) 0.2 10^3/uL (0.1-1.4); BASOPHILS % (MANUAL) 0 % (0-2); EOSINOPHILS % (MANUAL) 0 % (0-6); LYMPHOCYTES % (MANUAL) 62 % (13-45); MONOCYTES % (MANUAL) 2 % (3-13); SEGMENTED NEUTROPHILS % (MAN) 36 % (42-78); TOTAL CELLS COUNTED 100
[2019-04-24 17:42] LABS: ANISOCYTOSIS 3+; HYPOCHROMASIA 1+; PLATELET COMMENT ADEQUATE; POIKILOCYTOSIS 1+; TARGET CELLS 1+
--- NOTE | 2019-04-24 18:37 | ER Document Report ---
ED General - General Chief Complaint: Chest Pain Stated Complaint: CHEST PAIN Time Seen by Provider: 04/24/19 16:03 Primary Care Provider: JUDY RAJPUT DO [Primary Care Provider] - Follow up as needed TRAVEL OUTSIDE OF THE [place] IN LAST 30 DAYS: No - HPI Notes: Patient is a 43-year-old male who presents to the emergency department for evaluation of chest pain. He points just to the left of his sternum. It does not radiate. It is sharp in nature. He states occasionally he feels short of breath and nauseated with it. It started this morning at about 6 AM, at which time it woke him up. He denies any significant pain at this time. He has never had symptoms similar this in the past. - Related Data Allergies/Adverse Reactions: naproxen [Naproxen] Allergy (Verified 04/24/19 14:44) Past Medical History - General Information source: Patient - Social History Smoking Status: Current Every Day Smoker Frequency of alcohol use: None Drug Abuse: Marijuana Family History: Reviewed & Not Pertinent Patient has suicidal ideation: No Patient has homicidal ideation: No - Past Medical History Cardiac Medical History: Denies: Hx Congestive Heart Failure, Hx DVT, Hx Heart Attack, Hx Hypercholesterolemia, Hx Hypertension, Hx Pulmonary Embolism Pulmonary Medical History: Denies: Hx Asthma, Hx COPD, Hx Sleep Apnea Neurological Medical History: Denies: Hx Seizures Endocrine Medical History: Reports: Hx Diabetes Mellitus Type 1. Denies: Hx Diabetes Mellitus Type 2, Hx Hyperthyroidism, Hx Hypothyroidism Renal/ Medical History: Denies: Hx Peritoneal Dialysis GI Medical History: Reports: Hx Hepatitis - Hepatitis C, status post treatment of same. Denies: Hx Cirrhosis, Hx Gastroesophageal Reflux Disease Musculoskeletal Medical History: Denies Hx Arthritis Psychiatric Medical History: Reports: Hx Bipolar Disorder, Hx Depression Infectious Medical History: Reports: Hx Hepatitis - Hepatitis C, status post treatment of same. Denies: Hx C-Diff, Hx MRSA Past Surgical History: Reports: Hx Cholecystectomy, Hx Tonsillectomy - Immunizations Immunizations up to date: Yes Hx Diphtheria, Pertussis, Tetanus Vaccination: Yes Review of Systems - Review of Systems Constitutional: No symptoms reported EENT: No symptoms reported Cardiovascular: See HPI Respiratory: See HPI Gastrointestinal: See HPI Genitourinary: No symptoms reported Musculoskeletal: No symptoms reported Skin: No symptoms reported Neurological/Psychological: No symptoms reported Physical Exam - Vital signs Vitals: Temp Pulse Resp BP Pulse Ox 98.2 F 98 17 111/74 98 04/24/19 14:56 04/24/19 14:56 04/24/19 14:56 04/24/19 14:56 04/24/19 14:56 - Notes Notes: Vital signs reviewed, please refer to chart. Head is normocephalic, atraumatic. Pupils equal round, reactive to light. Neck is supple without meningismus. Heart is regular rate and rhythm. Lungs are clear to auscultation bilaterally. Chest wall tender to palpation, chest wall excursion is equal bilaterally. Abdomen is soft, nontender, normoactive bowel sounds throughout. Extremities without cyanosis, clubbing. Posterior calves are nontender. Peripheral pulses are equal. Skin is warm and dry. Patient is awake, alert, neurological exam is nonfocal. Course - Re-evaluation Re-evalutation: 04/24/19 18:37 Patient presents to the emergency department for evaluation of chest pain. It is atypical in nature. It was sharp. It woke him from sleep. Is not related to exertion. The patient does have the risk factors of diabetes and smoking, but again this would certainly be atypical pain. His EKG is unremarkable. He has absolutely no risk factors for PE or DVT. He has nontender calves. His heart rate was 98 on arrival, but he has been in the 80s without incident here. His cardiac enzymes are unremarkable. Chest x-ray was unremarkable. I explained to him that his LFTs are mildly elevated, but this is not a new finding. It is likely related to his hepatitis. He voiced understanding to this. He needs to follow-up with his primary care doctor this week for further evaluation. He is to return to the ED with worsening or new concerning symptoms of any sort. 04/24/19 18:38 - Vital Signs Vital signs: Temp Pulse Resp BP Pulse Ox 98.2 F 98 17 108/82 100 04/24/19 14:56 04/24/19 14:56 04/24/19 18:57 04/24/19 18:58 04/24/19 18:57 - Laboratory Result Diagrams: 04/24/19 17:00 04/24/19 17:00 Laboratory results interpreted by me: 04/24/19 04/24/19 17:00 17:00 RBC 5.87 H Hgb 12.8 L MCV 67 L MCH 21.7 L RDW 22.5 H Seg Neuts % (Manual) 36 L Lymphocytes % (Manual) 62 H Monocytes % (Manual) 2 L Abs Lymphs (Manual) 6.3 H BUN 30 H Glucose 140 H Calcium 10.3 H Direct Bilirubin 0.5 H AST 207 H Total Protein 8.4 H - Diagnostic Test Radiology reviewed: Reports reviewed Radiology results interpreted by me: 04/24/19 18:38 Chest X-Ray 04/24/19 16:07 IMPRESSION: NO ACUTE FINDINGS. - EKG Interpretation by Me Additional EKG results interpreted by me: 04/24/19 18:38 Sinus mechanism with rate of 90 bpm. Normal axis and intervals, no acute ST changes concerning for ischemia or infarction. Discharge - Discharge Clinical Impression: Chest pain Qualifiers: Chest pain type: unspecified Qualified Code(s): R07.9 - Chest pain, unspecified Condition: Stable Disposition: HOME, SELF-CARE Instructions: Chest Pain of Unclear Cause ([facility]) Additional Instructions: No clear cause was found for your chest pain today. Try to quit smoking. Follow-up with your doctor this week. If you develop worsening or new concerning symptoms of any sort, return immediately to the emergency department for reevaluation. Forms: Return to Work Referrals: JUDY RAJPUT DO [Primary Care Provider] - Follow up as needed
[2019-04-24 19:20] VITALS: BP 108/82
== END 2019-04-24 19:00 | disposition home or self-care (01) ==
LOC: ER 14:43
DX: R07.89 Other chest pain (principal); R06.02 Shortness of breath; R11.0 Nausea; R79.89 Other specified abnormal findings of blood chemistry; E10.9 Type 1 diabetes mellitus without complications; F17.200 Nicotine dependence, unspecified, uncomplicated; F12.10 Cannabis abuse, uncomplicated; Z88.8 Allergy status to other drugs, medicaments and biological substances
CPT/HCPCS: 36415; 71046; 80053; 83880; 84484; 85025; 93005; 93010; 99285

== ENCOUNTER 2019-08-28 21:21 | Emergency (ER) | payer SELFPAY ==
--- NOTE | 2019-08-28 22:57 | ER Document Report ---
ED Medical Screen (RME) - General Chief Complaint: Abdominal Pain Stated Complaint: RIB PAIN Time Seen by Provider: 08/28/19 22:53 Primary Care Provider: JUDY RAJPUT DO [Primary Care Provider] - Follow up as needed Mode of Arrival: Ambulatory Information source: Patient Notes: 44-year-old male presented to ED for complaint of left lower chest/rib/upper and left abdominal pain for the last 1-1/2 weeks. He states he was with his son and his son accidentally rammed his shoulder into his left upper abdomen left ribs and it is been hurting since then. He states it hurts to breathe and hurts to move and hurts to sleep. He does have tenderness to the left chest and left upper abdomen. There is no bruising or swelling to the area. He does have a history of diabetes type 1 and hepatitis C. He does smoke half pack a day drinks maybe once or twice a year and does not do any illicit drugs. He does work as a cook. His lungs are clear to auscultation but he has severe tenderness to the whole left chest and left upper abdomen. I have greeted and performed a rapid initial assessment of this patient. A comprehensive ED assessment and evaluation of the patient, analysis of test results and completion of medical decision making process will be conducted by an additional ED providers. TRAVEL OUTSIDE OF THE [place] IN LAST 30 DAYS: No - Related Data Allergies/Adverse Reactions: naproxen [Naproxen] Allergy (Verified 04/24/19 14:44) Past Medical History - Past Medical History Cardiac Medical History: Denies: Hx Congestive Heart Failure, Hx DVT, Hx Heart Attack, Hx Hypercholesterolemia, Hx Hypertension, Hx Pulmonary Embolism Pulmonary Medical History: Denies: Hx Asthma, Hx COPD, Hx Sleep Apnea Neurological Medical History: Denies: Hx Seizures Endocrine Medical History: Reports: Hx Diabetes Mellitus Type 1. Denies: Hx Diabetes Mellitus Type 2, Hx Hyperthyroidism, Hx Hypothyroidism Renal/ Medical History: Denies: Hx Peritoneal Dialysis GI Medical History: Reports: Hx Hepatitis - Hepatitis C, status post treatment of same. Denies: Hx Cirrhosis, Hx Gastroesophageal Reflux Disease Musculoskeltal Medical History: Denies Hx Arthritis Psychiatric Medical History: Reports: Hx Bipolar Disorder, Hx Depression Infectious Medical History: Reports: Hx Hepatitis - Hepatitis C, status post treatment of same. Denies: Hx C-Diff, Hx MRSA Past Surgical History: Reports: Hx Cholecystectomy, Hx Tonsillectomy - Immunizations Immunizations up to date: Yes Hx Diphtheria, Pertussis, Tetanus Vaccination: Yes Physical Exam - Vital signs Vitals: Temp Pulse Resp BP Pulse Ox 98.6 F 96 14 123/80 99 08/28/19 21:29 08/28/19 21:29 08/28/19 21:29 08/28/19 21:29 08/28/19 21:29 Course - Vital Signs Vital signs: Temp Pulse Resp BP Pulse Ox 98.6 F 96 14 123/80 99 08/28/19 21:29 08/28/19 21:29 08/28/19 21:29 08/28/19 21:29 08/28/19 21:29 Doctor's Discharge - Discharge Referrals: JUDY RAJPUT DO [Primary Care Provider] - Follow up as needed
[2019-08-28 23:27] LABS: HEMATOCRIT 40.1 % (37.9-51.0); HEMOGLOBIN 12.9 g/dL (13.5-17.0); MEAN CORPUSCULAR HEMOGLOBIN 21.4 pg (27.0-33.4); MEAN CORPUSCULAR HGB CONC 32.2 g/dL (32.0-36.0); MEAN CORPUSCULAR VOLUME 67 fl (80-97); PLATELET COUNT 248 10^3/uL (150-450); RED BLOOD COUNT 6.03 10^6/uL (4.35-5.55); RED CELL DISTRIBUTION WIDTH 22.2 % (11.5-14.0); WHITE BLOOD COUNT 9.6 10^3/uL (4.0-10.5)
[2019-08-28 23:36] LABS: INTERNATIONAL RATION (INR) 1.03; PROTHROMBIN TIME 13.6 SEC (11.4-15.4)
[2019-08-28 23:37] LABS: PARTIAL THROMBOPLASTIN TIME 29.5 SEC (23.5-35.8)
[2019-08-28 23:43] LABS: ALBUMIN 4.2 g/dL (3.5-5.0); ALKALINE PHOSPHATASE 123 U/L (38-126); ANION GAP 13 (5-19); ASPARTATE AMINO TRANSFERASE 136 U/L (17-59); BILIRUBIN,DIRECT 0.4 mg/dL (0.0-0.4); BILIRUBIN,TOTAL 0.6 mg/dL (0.2-1.3); BLOOD UREA NITROGEN 26 mg/dL (7-20); CALCIUM 9.8 mg/dL (8.4-10.2); CARBON DIOXIDE 25 mmol/L (22-30); CHLORIDE 96 mmol/L (98-107); POTASSIUM 4.7 mmol/L (3.6-5.0); TOTAL PROTEIN 8.2 g/dL (6.3-8.2)
--- NOTE | 2019-08-28 23:43 | RADIOLOGY REPORT (SQ) ---
EXAM DESCRIPTION: XR CHEST 2 VIEWS CLINICAL INDICATION: 44-year-old male with chest and LEFT upper quadrant pain. TECHNIQUE: Two-view, PA and lateral projections of the chest were obtained. COMPARISON: 04/24/2019. FINDINGS: Unremarkable cardiac and mediastinal silhouette. Heart size is normal. Lungs are clear without focal opacity, pneumothorax or pleural effusions. The visualized bones are within normal limits. Cholecystectomy clips. IMPRESSION: No acute cardiopulmonary abnormalities.
[2019-08-28 23:54] LABS: ABSOLUTE LYMPHOCYTES# (MANUAL) 5.3 10^3/uL (0.5-4.7); ABSOLUTE MONOCYTES # (MANUAL) 0.5 10^3/uL (0.1-1.4); BASOPHILS % (MANUAL) 0 % (0-2); EOSINOPHILS % (MANUAL) 2 % (0-6); LYMPHOCYTES % (MANUAL) 48 % (13-45); MONOCYTES % (MANUAL) 5 % (3-13); SEGMENTED NEUTROPHILS % (MAN) 38 % (42-78); TOTAL CELLS COUNTED 100
[2019-08-28 23:57] LABS: ANISOCYTOSIS 3+; OVALOCYTES 1+; PLATELET COMMENT ADEQUATE; POIKILOCYTOSIS 2+; SCHISTOCYTES SLIGHT; TARGET CELLS 1+; TEAR DROP CELLS SLIGHT
[2019-08-29 00:02] LABS: GLUCOSE 437 mg/dL (75-110)
--- NOTE | 2019-08-29 00:15 | RADIOLOGY REPORT (SQ) ---
EXAM DESCRIPTION: US ABDOMEN LIMITED CLINICAL INDICATION: 44-year-old male with LEFT upper quadrant and chest pain. COMPARISON: None. TECHNIQUE: Limited lee scale sonography of the LEFT upper abdomen. FINDINGS: SPLEEN: The spleen is within normal limits of morphology and echogenicity measuring 10.5 cm. LEFT KIDNEY: The left kidney measures 13.9 x 5.8 x 6.2 cm. The cortex is slightly echogenic raising the possibility of medical renal disease. No shadowing calculi or hydronephrosis is present. OTHER: No significant abnormalities noted. IMPRESSION: 1. No specific sonographic findings are noted to suggest etiology of the patient's symptoms. 2. Slight cortical echogenicity of the LEFT kidney raising the possibility of medical renal disease of uncertain etiology. No hydronephrosis, hydroureter or nephrolithiasis. Please correlate with laboratory values.
[2019-08-29] MEDS ORDERED: NORMAL SALINE 1000 ML 1,000 ML IV ONE ×2 (00:38→00:39)
[2019-08-29] MEDS ORDERED: INSULIN REG, HUMAN 100 UNIT/ML 3 ML VIAL (PYX) SUBCUT ONE (00:38)
[2019-08-29 03:22] LABS: APPEARANCE,URINE CLEAR; BILIRUBIN,URINE NEGATIVE (NEGATIVE); COLOR,URINE YELLOW; GLUCOSE, URINE >=500 mg/dL (NEGATIVE); KETONES,URINE TRACE mg/dL (NEGATIVE); LEUKOCYTE ESTERASE,URINE NEGATIVE (NEGATIVE); NITRITE,URINE NEGATIVE (NEGATIVE); PROTEIN,URINE NEGATIVE (NEGATIVE); URINE SPECIFIC GRAVITY 1.024; UROBILINOGEN,URINE NEGATIVE mg/dL (<2.0)
[2019-08-29 04:08] VITALS: BP 122/78
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
== END 2019-08-29 04:18 | disposition home or self-care (01) ==
LOC: ER 21:21
DX: S30.1XXA Contusion of abdominal wall, initial encounter (principal); R07.81 Pleurodynia; R10.12 Left upper quadrant pain; X58.XXXA Exposure to other specified factors, initial encounter; F17.200 Nicotine dependence, unspecified, uncomplicated; E10.9 Type 1 diabetes mellitus without complications; Z86.19 Personal history of other infectious and parasitic diseases; Z90.49 Acquired absence of other specified parts of digestive tract
CPT/HCPCS: 99284; 96360; 96361; 36415; 83690; 85025; 85610; 85730; 80053; 81001; 71046; 76705; J7030

== ENCOUNTER → 2019-11-10 | Outpatient (CLI) | payer MEDICAID ==
--- NOTE | 2019-11-10 18:12 | RADIOLOGY REPORT (SQ) ---
EXAM DESCRIPTION: LUMBAR SPINE COMPLETE COMPLETED DATE/TIME: 11/10/2019 5:32 pm REASON FOR STUDY: LUMBOSACRAL PAIN M54.5 LOW BACK PAIN COMPARISON: None. NUMBER OF VIEWS: Five views including obliques. TECHNIQUE: AP, lateral, oblique, and sacral radiographic images acquired of the lumbar spine. LIMITATIONS: None. FINDINGS: MINERALIZATION: Normal. SEGMENTATION: Normal. No transitional anatomy. ALIGNMENT: Normal. VERTEBRAE: Maintained height. No fracture or worrisome bone lesion. DISCS: There is mild disc narrowing at L4-5. There is greater disc narrowing at L5-S1 with small mar ginal osteophytes. POSTERIOR ELEMENTS: Pedicles and facets are intact. No pars defect or posterior arch defects. HARDWARE: None in the spine. PARASPINAL SOFT TISSUES: Normal. PELVIS: Intact as visualized. No fractures or worrisome bone lesions. SI joints intact. OTHER: No other significant finding. IMPRESSION: Degenerative disc disease with mild spondylosis. TECHNICAL DOCUMENTATION: JOB ID: [id number] 2010 [employer]- All Rights Reserved Reading location - IP/workstation name: [email or web address]
== END ==
LOC: RAD 16:57
PROVIDERS: ATTEND Family Medicine
DX: M54.5 Low back pain (principal)
CPT/HCPCS: 72110

== ENCOUNTER → 2020-01-02 | Outpatient (CLI) | payer MEDICAID ==
[2020-01-02 12:42] LABS: ABSOLUTE BASOPHILS # (AUTO) 0.1 10^3/uL (0.0-0.2); ABSOLUTE EOSINOPHILS # (AUTO) 0.2 10^3/uL (0.0-0.6); ABSOLUTE LYMPHOCYTES (AUTO) 4.1 10^3/uL (0.5-4.7); ABSOLUTE MONOCYTES (AUTO) 0.7 10^3/uL (0.1-1.4); ABSOLUTE NEUT (AUTO) 6.4 10^3/uL (1.7-8.2); EOSINOPHILS % (AUTO) 1.9 % (0-6); HEMATOCRIT 39.1 % (37.9-51.0); HEMOGLOBIN 12.7 g/dL (13.5-17.0); LYMPHOCYTES % (AUTO) 35.6 % (13-45); MEAN CORPUSCULAR HEMOGLOBIN 21.8 pg (27.0-33.4); MEAN CORPUSCULAR HGB CONC 32.5 g/dL (32.0-36.0); MEAN CORPUSCULAR VOLUME 67 fl (80-97); MONOCYTES % (AUTO) 6.2 % (3-13); PLATELET COUNT 294 10^3/uL (150-450); RED BLOOD COUNT 5.83 10^6/uL (4.35-5.55); RED CELL DISTRIBUTION WIDTH 21.9 % (11.5-14.0); SEGMENTED NEUTROPHILS % (AUTO) 55.3 % (42-78); TOTAL CELLS COUNTED % (AUTO) 100 %; WHITE BLOOD COUNT 11.6 10^3/uL (4.0-10.5)
[2020-01-02 13:01] LABS: INTERNATIONAL RATION (INR) 1.06; PROTHROMBIN TIME 13.9 SEC (11.4-15.4)
[2020-01-02 13:08] LABS: ALBUMIN 4.3 g/dL (3.5-5.0); ALKALINE PHOSPHATASE 134 U/L (38-126); ANION GAP 8 (5-19); ASPARTATE AMINO TRANSFERASE 118 U/L (17-59); BILIRUBIN,DIRECT 0.1 mg/dL (0.0-0.4); BILIRUBIN,TOTAL 0.8 mg/dL (0.2-1.3); BLOOD UREA NITROGEN 14 mg/dL (7-20); CALCIUM 9.7 mg/dL (8.4-10.2); CARBON DIOXIDE 26 mmol/L (22-30); CHLORIDE 99 mmol/L (98-107); GLUCOSE 206 mg/dL (75-110); POTASSIUM 4.5 mmol/L (3.6-5.0); TOTAL PROTEIN 8.4 g/dL (6.3-8.2)
[2020-01-03 06:37] LABS: HEPATITS B SURFACE ANTIGEN Negative (Negative)
[2020-01-03 07:08] LABS: HEPATITIS C VIRUS ANTIBODY >11.0 s/co ratio (0.0-0.9)
== END ==
LOC: OD 10:37
PROVIDERS: ATTEND Internal Medicine Gastroenterology
DX: B18.2 Chronic viral hepatitis C (principal)
CPT/HCPCS: 80053; 80074; 81270; 82172; 82247; 82977; 83010; 83883; 84460; 85025; 85610; 86701; 87522